=== PATIENT | female | born 1960 | race Caucasian/White ===

== ENCOUNTER 2025-08-11 12:19 | Outpatient (CLI) | payer MEDICARE, SELFPAY ==
--- NOTE | ~2025-08-11 | XR_ITS ---
EXAMINATION: XR shoulder LT min 2V DATE: 08/11/2025 12:56 INDICATION: Pain in left shoulder. Fall. TECHNIQUE: 5 images of the left shoulder were obtained. COMPARISON: None FINDINGS: Mild degenerative change in the left acromial clavicular joint. Mild joint space narrowing in the left clinical humeral joint. Mild spurring about the glenohumeral joint. Mild bony irregularity of the greater tuberosity left humeral head likely due to rotator cuff tendinopathy. [ No radiographic evidence for an acute fracture or dislocation.] [ No radiopaque foreign body.] There is an indeterminate 1.0 x 1.2 cm sclerotic lesion in the intramedullary cavity of the middle third of the left humerus. The finding is along the inner cortex of the middle third of the left humerus. IMPRESSION: 1. No fracture. No dislocation. 2. There is an indeterminate 1.0 x 1.2 cm sclerotic lesion in the intramedullary cavity of the middle third of the left humerus. The finding is along the inner cortex of the middle third of the left humerus. Differential includes bone island or malignant bone lesion. A total body bone scan is recommended. Consider an MRI of the left humerus with and without contrast for further assessment. 3. Mild degenerative change about the left shoulder. Reviewed, dictated and finalized at location Q. IMPRESSION: 1. No fracture. No dislocation. 2. There is an indeterminate 1.0 x 1.2 cm sclerotic lesion in the intramedullar y cavity of the middle third of the left humerus. The finding is along the inne r cortex of the middle third of the left humerus. Differential includes bone is land or malignant bone lesion. A total body bone scan is recommended. Consider an MRI of the left humerus with and without contrast for further assessment. 3. Mild degenerative change about the left shoulder.
--- OUTSIDE RECORDS SUMMARY | 2025-08-11 12:31 | XMS_ITS | Clinical Summary ---
Author Organization [facility] Address [address] [place] [address] Care Team Providers Care Secretarial Teacher Name Role Phone Fadi Wan MD Primary Care Provider [phone] Allergies No known active allergies Medications atorvastatin (LIPITOR) 20 mg tablet TK 1 T PO QD 0 08/11/2018 Active BYSTOLIC 10 mg tablet TK 1 T PO QD 1 08/26/2018 Active ergocalciferol (VITAMIN D) 50,000 unit capsule 09/07/2018 Active hydroCHLOROthiaz linda (HYDRODIURIL) 25 mg tablet TK 1 T PO QD 0 08/11/2018 Active lisinopril (PRINIVIL,ZESTRI L) 40 mg tablet TK 1 T PO QD 0 08/11/2018 Active Active Problems Problem Noted Date Diagnosed Date Abnormal findings on diagnostic imaging of breas t 09/09/2018 Surgical History Surgery Date Site/Laterality Comments ANKLE SURGERY 11/11/2017 - 11/10/2018 Right Medical History Medical History Date Comments Hypertension Family History Medical History Relation Name Comments Bladder Cancer Father Relation Name Status Comments Father Social History Tobacco Use Types Packs/Day Years Used Date Smoking Tobacco: Never Smokeless Tobacco: Never Alcohol Use Standard Drinks/Week Comments Yes 0 (1 standard drink = 0.6 oz pur e alcohol) socially Comments No Sex and Gender Information Value Date Recorded Sex Assigned at Not on file 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[employer] Gender Identity Not on file Sexual Orientation Not on file Obstetrics History Last Filed Vital Signs Vital Sign Reading Time Taken Comments Blood Pressure - - Pulse - - Temperature - - Respiratory Rate - - Oxygen Saturation - - Inhaled Oxygen Concentration - - Weight 106.6 kg (235 lb) 09/09/2018 8:38 AM CDT Height 154.9 cm (5' 1) 09/09/2018 8:38 AM CDT Body Mass Index 44.4 09/09/2018 8:38 AM CDT Plan of Treatment Health Maintenance Due Date Last Done Comments Colon Cancer Screening-Colonoscopy 1959 Depression Screening 1959 Fall Risk Assessment 1959 Hepatitis C Screening 1959 Osteoporosis Screening-Bone Density Scan 1959 DTaP/Tdap/Td Vaccine (1 - Tdap) 1970 Hepatitis B Screening 1977 Pneumococcal vaccine 65+ (1 of 1 - PCV) 2009 Zoster Vaccine (1 of 2) 2009 Well Visit 65+ 2024 Influenza Vaccine (#1) 2025 8, 08/07/2017, 09/23/2014, Additional history exists Breast Cancer Screening-Mammogram 09/17/2025 09/17/2024, 09/16/2023, 09/14/2022, Additional history exists Procedures Procedure Name Priority Date/Time Associated Diagnosis Comments SCREENING MAMMOGRAM BILATERAL W BIMAL Schedule Routine, Read Routine (OP Routine) 09/17/2024 9:26 AM VICE PRESIDENT [employer] Screening mammogram, encounter for from Last 3 Months or Most Recently Relevant to Health Maintenance Results * Screening Mammogram Bilateral W Bimal (09/17/2024 9:26 AM VICE PRESIDENT [employer]) Anatomical Region Laterality Modality Breast Bilateral Mammography Narrative 09/18/2024 3:13 PM VICE PRESIDENT [employer] Mammogram Technique: Bilateral Digital Breast Tomosynthesis, Bilateral C-view 2D Screening mammogram. Views obtained: bilateral craniocaudal and bilateral mediolateral oblique. Computer Aided Detection was performed. Mammogram Findings: The present examination has been compared to prior imaging studies performed at [facility] on 09/13/2021, 09/14/2022 and 09/16/2023. The breasts are almost entirely fatty. There is no suspicious abnormality in either breast. Impression: There is no mammographic evidence of malignancy. Annual screening mammography is recommended. OVERALL FINAL ASSESSMENT: BI-RADS CATEGORY 1: Negative. Procedure Note Edmundo Husain MD - 09/18/2024 Mammogram Technique: Bilateral Digital Breast Tomosynthesis, Bilateral C-view 2D Screening mammogram. Views obtained: bilateral craniocaudal and bilateral mediolateral oblique. Computer Aided Detection was performed. Mammogram Findings: The present examination has been compared to prior imaging studies performed at [facility] on 09/13/2021, 09/14/2022 and 09/16/2023. The breasts are almost entirely fatty. There is no suspicious abnormality in either breast. Impression: There is no mammographic evidence of malignancy. Annual screening mammography is recommended. OVERALL FINAL ASSESSMENT: BI-RADS CATEGORY 1: Negative. us Self Screening Mammogram IMG MAMMO PROCEDURES Fi nal Result from Last 3 Months or Most Recently Relevant to Health Maintenance Insurance [employer] MEDICARE [employer] [facility] MEDICARE Care Teams Secretarial Teacher Relationship Specialty Start Date End Date Fadi Wan MD PCP - General 12/27/16
== END 2025-08-11 12:20 | disposition home or self-care (01) ==
PROVIDERS: PCP Internal Medicine
DX: M19.012 Primary osteoarthritis, left shoulder (principal)
CPT/HCPCS: 73030

== ENCOUNTER 2025-08-17 10:29 | Outpatient (CLI) | payer MEDICARE, SELFPAY ==
--- NOTE | ~2025-08-17 | MR_ITS ---
EXAMINATION: MR shoulder LT wo con DATE: 08/17/2025 11:55 INDICATION: Left shoulder pain TECHNIQUE: Magnetic resonance imaging (MRI) of the left shoulder was performed without intravenous contrast. Sequences included axial PD-weighted FS FSE, coronal oblique PD-weighted FS FSE, coronal oblique T2-weighted FS FSE, sagittal PD-weighted FS FSE, and sagittal T1-weighted SE. COMPARISON: None. FINDINGS: Coracoacromial arch: The acromion undersurface is curved in morphology (type II). The coracoacromial ligament is normal. Mild acromioclavicular osteoarthritis. Rotator cuff: Moderate supraspinatus and infraspinatus tendinopathy. There is attenuation of the distal 3.5 cm the supraspinatus and infraspinatus tendons with large partial-thickness articular sided tear involving approximately 50% of tendon thickness. There are few superimposed small full-thickness perforations in the distal 1.5 cm the supraspinatus tendon. The teres minor tendon is normal. There is moderate subscapularis tendinopathy with complete avulsion from the lesser tuberosity footplate. The torn tendon is retracted approximately 2 cm medially the cephalad portion of the tendon remaining tethered to the supraspinatus tendon. No asymmetric rotator cuff muscle atrophy. There is prominent edema in the superficial aspect of the infraspinatus muscle belly and mild muscular edema in the subscapularis muscle belly which in setting of recent trauma suggests reactive edema related to the rotator cuff tear or muscle strain. Biceps tendon, glenoid labrum and glenohumeral cartilage: Mild tendinopathy without discrete tear of the long head biceps tendon which is subluxed medially across the torn lesser tuberosity footplate of the subscapularis tendon. Diffuse degenerative tearing of the glenoid labrum sparing the anterosuperior labrum. Partial-thickness chondral fissuring with mild subarticular edema-like signal change at the anteroinferior glenoid. Partial- thickness cartilage loss with smooth chondral surface along the inferomedial aspect of the humeral head. Fluid: Small glenohumeral joint effusion with fluid extending through the full- thickness subscapularis tendon tear extending caudally into the axillary soft tissues posterior to the short head biceps muscle and tendon. No loose osteochondral bodies. Small amount of fluid in the subacromial/subdeltoid bursa consistent with mild bursitis. Bones: No fracture or pathologic marrow replacing process. IMPRESSION: 1. Mild glenohumeral osteoarthritis with diffuse degenerative tearing of all but the anterosuperior glenoid labrum. 2. Full-thickness tear/avulsion of the lesser tuberosity attachment of the subscapularis tendon allowing medial subluxation of the long head biceps tendon across the lesser tuberosity tear defect. 3. Moderate supraspinatus and infraspinatus tendinopathy with moderate grade articular sided tear of both tendons with superimposed more focal small full- thickness tears/perforations at the distal supraspinatus tendon. 4. Mild subacromial/subdeltoid bursitis. Reviewed, dictated and finalized at location A. IMPRESSION: 1. Mild glenohumeral osteoarthritis with diffuse degenerative tearing of all bu t the anterosuperior glenoid labrum. 2. Full-thickness tear/avulsion of the lesser tuberosity attachment of the subs capularis tendon allowing medial subluxation of the long head biceps tendon acr oss the lesser tuberosity tear defect. 3. Moderate supraspinatus and infraspinatus tendinopathy with moderate grade ar ticular sided tear of both tendons with superimposed more focal small full-thic kness tears/perforations at the distal supraspinatus tendon. 4. Mild subacromial/subdeltoid bursitis.
--- OUTSIDE RECORDS SUMMARY | 2025-08-17 11:29 | XMS_ITS | Clinical Summary ---
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 Views obtained: bilateral craniocaudal and bilateral mediolateral oblique. Computer Aided Detection was performed. Mammogram Findings: The present examination has been compared to prior imaging studies performed at [facility] on 09/13/2021, 09/14/2022 and 09/16/2023. The breasts [...] compared to prior imaging studies performed at [facility] on 09/13/2021, 09/14/2022 and 09/16/2023. The breasts are almost entirely fatty. There is no suspicious abnormality in either breast. Impression: There is no mammographic evidence of malignancy. Annual screening mammography is recommended. OVERALL FINAL ASSESSMENT: BI-RADS CATEGORY 1: Negative. us Self Screening Mammogram IMG MAMMO PROCEDURES Fi nal Result from Last 3 Months or Most Recently Relevant to Health Maintenance Insurance A[employer] MEDICARE [employer] [facility] MEDICARE Care Teams Facility Maintenance Technician Relationship Specialty Start Date End Date Fadi Wan MD PCP - General 12/27/16
== END 2025-08-17 10:30 | disposition home or self-care (01) ==
PROVIDERS: PCP Internal Medicine
DX: M19.012 Primary osteoarthritis, left shoulder (principal); M75.52 Bursitis of left shoulder
CPT/HCPCS: 73221